=== PATIENT | male | born 1960 | race Caucasian/White ===

== ENCOUNTER 2016-04-26 23:31 | Emergency (ER) | payer SELFPAY ==
[~2016-04-26] VITALS: Ht 180.3 cm; Wt 83.9 kg
[2016-04-26] MEDS ORDERED: ACETAMINOPHEN 325 MG TAB PO ONE (23:45)
[2016-04-27 00:58] VITALS: BP 112/75
[2016-04-27] MEDS ORDERED: cefTRIAXone SOD 1,000 MG VL IM ONE (01:00)
[2016-04-27] MEDS ORDERED: methylPREDNISolone SOD SUCC 125 MG/2 ML VL IM ONE (01:00)
== END 2016-04-27 01:14 | disposition home or self-care (01) ==
LOC: ER 23:34
DX: J40 Bronchitis, not specified as acute or chronic (principal)
CPT/HCPCS: 71020; 93005; 96372; 99284; J0696; J2930

== ENCOUNTER 2017-03-13 19:44 | Emergency (ER) | payer SELFPAY ==
[~2017-03-13] VITALS: Ht 177.8 cm; Wt 90.7 kg
[2017-03-13 20:06] VITALS: BP 116/72
== END 2017-03-13 23:11 | disposition home or self-care (01) ==
LOC: ER 19:44
DX: M25.562 Pain in left knee (principal)

== ENCOUNTER 2018-03-25 04:48 | Emergency (ER) | payer SELFPAY ==
[~2018-03-25] VITALS: Ht 177.8 cm; Wt 86.2 kg
[2018-03-25 06:41] LABS: Basophils # (auto) 0 uL; Basophils % (auto) 0.5 % (0.0-2.0); Eosinophils # (auto) 0.2 uL; Eosinophils % (auto) 3.1 % (0.0-7.0); Hematocrit 47.8 % (41.0-53.0); Hemoglobin 15.9 g/dL (13.5-17.5); Lymphocytes # (auto) 2.3 uL; Lymphocytes % (auto) 34.8 % (10.0-50.0); Mean Corpuscular Hemoglobin 29.4 pg (28.0-32.0); Mean Corpuscular Hgb Conc. 33.2 g/dL (32.0-36.0); Mean Corpuscular Volume 88.4 fL (80.0-100.0); Monocytes # (auto) 0.5 uL; Monocytes % (auto) 7.3 % (0.0-12.0); Neutrophils # (auto) 3.5 uL; Neutrophils % (auto) 54.3 % (37.0-80.0); Nucleated Red Blood Cells % 0.2 %; Platelet Count (auto) 247 10^3/uL (140-450); Red Blood Cells 5.41 10^6/uL (4.5-5.90); Red Cell Distribution Width 13.1 % (11.8-14.3); White Blood Cell 6.5 10^3/uL (4.4-10.8)
[2018-03-25 07:06] LABS: Albumin 3.5 g/dL (3.4-5.0); Anion Gap 4 (5-15); Blood Urea Nitrogen 13 mg/dL (7-18); Calcium 8.5 mg/dL (8.5-10.1); Carbon Dioxide 24 mmol/L (21-32); Chloride 108 mmol/L (98-107); Glucose 99 mg/dL (74-106); Magnesium 2.1 mg/dL (1.6-2.6); Potassium 3.8 mmol/L (3.5-5.1); Sodium 136 mmol/L (136-145)
[2018-03-25 07:12] LABS: Alanine Aminotransferase 24 U/L (16-61); Alkaline Phosphatase 69 U/L (45-117); Aspartate Aminotransferase 14 U/L (15-37); BUN/Creatinine Ratio 13.3; Bilirubin, Total 0.3 mg/dL (0.2-1.0); GFR African American 101 mL/min; GFR Non-African American 83 mL/min; Total Protein 6.7 g/dL (6.4-8.2)
[2018-03-25 07:50] LABS: Urine WBC None Seen /hpf (0 - 3)
[2018-03-25 07:57] LABS: Urine Bacteria NONE SEEN /hpf (None Seen); Urine Blood Negative /uL (Negative); Urine Specific Gravity 1.009 (1.001-1.035)
[2018-03-25 11:10] VITALS: BP 119/85
== END 2018-03-25 11:16 | disposition home or self-care (01) ==
LOC: ER 04:48
DX: R07.89 Other chest pain (principal); F17.200 Nicotine dependence, unspecified, uncomplicated; F17.210 Nicotine dependence, cigarettes, uncomplicated
CPT/HCPCS: 36415; 71046; 80053; 81001; 83735; 84484; 85025; 93005